=== PATIENT | male | born 1990 | race Caucasian/White ===

== ENCOUNTER 2020-06-08 09:45 | Inpatient (IN) | payer OTHER ==
[2020-06-08] MEDS ORDERED: LORazepam 2 MG/ML INJ IV STA (10:05)
[2020-06-08] MEDS ORDERED: SODIUM CHLORIDE 0.9% 1,000 ML IV STA (10:05)
[2020-06-08] MEDS ORDERED: THIAMINE 100 MG/ML 2 ML VIAL IM STA (10:06)
[2020-06-08 10:41] LABS: HCT 37.4 % (39.0-53.0); HGB 12.7 gm/dL (13.0-17.5); MCH 32.5 pg (25.0-35.0); MCHC 33.9 g/dL (31.0-37.0); MCV 95.8 fL (80.0-100.0); Mean Platelet Volume 9.3; Platelet Count 142 k/uL (150-450); RBC 3.91 m/uL (4.30-5.90); RDW 13.8 % (11.5-15.5); WBC 4.2 k/uL (3.8-10.6)
[2020-06-08 10:51] LABS: ALT 109 U/L (4-49); AST 354 U/L (17-59); African American GFR (CKD) >90 (>60 ml/min/1.73 sqM); Albumin 4.7 g/dL (3.5-5.0); Alcohol <10 mg/dL; Alkaline Phosphatase 137 U/L (38-126); Anion Gap 13 mmol/L; Blood Urea Nitrogen 7 mg/dL (9-20); Calcium 8.5 mg/dL (8.4-10.2); Carbon Dioxide 31 mmol/L (22-30); Chloride 92 mmol/L (98-107); Glucose 95 mg/dL (74-99); Lipase 558 U/L (23-300); Non-African American GFR(CKD) >90 (>60 ml/min/1.73 sqM); Potassium 3.3 mmol/L (3.5-5.1); Sodium 136 mmol/L (137-145); Total Bilirubin 2.6 mg/dL (0.2-1.3)
--- NOTE | 2020-06-08 10:59 | ED ---
General Adult HPI - General Chief complaint: Alcohol Stated complaint: Mental Health Time Seen by Provider: 06/08/20 09:50 Source: patient, EMS, RN notes reviewed, old records reviewed Mode of arrival: EMS Limitations: altered mental status - History of Present Illness Initial comments: 30-year-old male presents with alcohol withdrawal from [facility]. Patient has known history of alcohol abuse. His last drink was 2 days ago. When he checked in to [facility]. His alcohol level at that time was 200. He began having tremor and hallucinations as well as altered mental status today. He was sent to the emergency department for evaluation. Patient is uncertain exactly why he is in the emergency department. He admits to alcohol consumption but denies recent heavy daily alcohol consumption. No suicidal or homicidal ideation. - Related Data Home Medications Medication Instructions Recorded Confirmed Metoprolol Succinate (ER) [Toprol 100 mg PO DAILY 06/08/20 06/08/20 Xl] Pantoprazole Sodium [Protonix] 40 mg PO BID 06/08/20 06/08/20 Sucralfate [Carafate] 1 gm PO QID 06/08/20 06/08/20 amLODIPine [Norvasc] 5 mg PO DAILY 06/08/20 06/08/20 buPROPion HCL [Wellbutrin SR] 100 mg PO DAILY 06/08/20 06/08/20 Allergies Allergy/AdvReac Type Severity Reaction Status Date / Time No Known Allergies Allergy Verified 06/08/20 10:53 Review of Systems ROS Statement: Those systems with pertinent positive or pertinent negative responses have been documented in the HPI. ROS Other: All systems not noted in ROS Statement are negative. Past Medical History Past Medical History: Hypertension History of Any Multi-Drug Resistant Organisms: None Reported Past Psychological History: No Psychological Hx Reported Smoking Status: Current every day smoker Past Alcohol Use History: Heavy Past Drug Use History: None Reported General Exam Limitations: altered mental status General appearance: alert, anxious Head exam: Present: atraumatic, normocephalic Eye exam: Present: normal appearance, PERRL ENT exam: Present: mucous membranes dry Neck exam: Present: normal inspection. Absent: tenderness, meningismus Respiratory exam: Present: normal lung sounds bilaterally. Absent: respiratory distress Cardiovascular Exam: Present: regular rate, normal rhythm GI/Abdominal exam: Present: soft. Absent: distended, tenderness, guarding Extremities exam: Present: normal inspection, normal capillary refill. Absent: pedal edema Neurological exam: Present: alert. Absent: oriented X3, motor sensory deficit Psychiatric exam: Present: anxious Skin exam: Present: warm, dry, intact. Absent: cyanosis, diaphoretic Course Vital Signs 06/08/20 06/08/20 06/08/20 09:51 10:59 11:00 Temperature 98.6 F Pulse Rate 91 77 75 Respiratory 18 16 16 Rate Blood Pressure 143/104 156/112 O2 Sat by Pulse 100 99 100 Oximetry EKG Findings - EKG Comments: EKG Findings:: EKG: Sinus rhythm with first-degree AV block, T-wave inversion in V3 and V4, no ST segment elevation, ventricular rate of 90, HI interval 232, QRS duration 92, QTC 450. Medical Decision Making - Medical Decision Making 30-year-old male presenting for evaluation of suspected alcohol withdrawal. Patient is alert and oriented 1. He has a nonfocal neurologic exam. His vitals are stable. By review of the medical record it does appear this patient had his last drink approximately 2 days ago. He is given Ativan, IV fluids in the emergency department. Workup is initiated, normal CBC, CMP showing significant the left foot abnormalities including hypokalemia and hypomagnesemia as well as elevated bilirubin and transaminitis. He's electrolytes are re placed. He will be admitted to a monitored bed. Case discussed with Dr. Rivera who will admit. - Lab Data Result diagrams: 06/08/20 10:34 06/08/20 10:34 Lab Results 06/08/20 06/08/20 06/08/20 Range/Units 10:34 10:34 10:44 WBC 4.2 (3.8-10.6) k/uL RBC 3.91 L (4.30-5.90) m/uL Hgb 12.7 L (13.0-17.5) gm/dL Hct 37.4 L (39.0-53.0) % MCV 95.8 (80.0-100.0) fL MCH 32.5 (25.0-35.0) pg MCHC 33.9 (31.0-37.0) g/dL RDW 13.8 (11.5-15.5) % Plt Count 142 L (150-450) k/uL MPV 9.3 Neutrophils % (Manual) 59 % Lymphocytes % (Manual) 25 % Monocytes % (Manual) 11 % Eosinophils % (Manual) 5 % Neutrophils # (Manual) 2.48 (1.3-7.7) k/uL Lymphocytes # (Manual) 1.05 (1.0-4.8) k/uL Monocytes # (Manual) 0.46 (0-1.0) k/uL Eosinophils # (Manual) 0.21 (0-0.7) k/uL Nucleated RBCs 0 (0-0) /100 WBC Manual Slide Review Performed Poikilocytosis (manual Present Sodium 136 L (137-145) mmol/L Potassium 3.3 L (3.5-5.1) mmol/L Chloride 92 L (98-107) mmol/L Carbon Dioxide 31 H (22-30) mmol/L Anion Gap 13 mmol/L BUN 7 L (9-20) mg/dL Creatinine 1.11 (0.66-1.25) mg/dL Est GFR (CKD-EPI)AfAm >90 (>60 ml/min/1.73 sqM) Est GFR (CKD-EPI)NonAf >90 (>60 ml/min/1.73 sqM) Glucose 95 (74-99) mg/dL Calcium 8.5 (8.4-10.2) mg/dL Magnesium 0.6 L* (1.6-2.3) mg/dL Total Bilirubin 2.6 H (0.2-1.3) mg/dL AST 354 H (17-59) U/L ALT 109 H (4-49) U/L Alkaline Phosphatase 137 H (38-126) U/L Total Protein 8.0 (6.3-8.2) g/dL Albumin 4.7 (3.5-5.0) g/dL Lipase 558 H (23-300) U/L Urine Opiates Screen Not Detected (NotDetected) Ur Oxycodone Screen Not Detected (NotDetected) Urine Methadone Screen Not Detected (NotDetected) Ur Propoxyphene Screen Not Detected (NotDetected) Ur Barbiturates Screen Not Detected (NotDetected) U Tricyclic Antidepress Not Detected (NotDetected) Ur Phencyclidine Scrn Not Detected (NotDetected) Ur Amphetamines Screen Not Detected (NotDetected) U Methamphetamines Scrn Not Detected (NotDetected) U Benzodiazepines Scrn Detected H (NotDetected) Urine Cocaine Screen Not Detected (NotDetected) U Marijuana (THC) Screen Not Detected (NotDetected) Serum Alcohol <10 mg/dL Critical Care Time Critical Care Time: Yes Total Critical Care Time: 35 Disposition Clinical Impression: Alcohol withdrawal delirium, Hypomagnesemia Disposition: ADMITTED IP TO THIS [facility] Condition: Serious Is patient prescribed a controlled substance at d/c from ED?: No Referrals: Manpreet Mccartney MD [Primary Care Provider] - 1-2 days Decision to Admit Reason: Admit from EC Decision Date: 06/08/20 Decision Time: 11:33
[2020-06-08 11:03] LABS: Magnesium 0.6 mg/dL (1.6-2.3)
[2020-06-08 11:09] LABS: Amphetamine Screen,Urine Not Detected (NotDetected); Barbiturate Screen,Urine Not Detected (NotDetected); Benzodiazepines Screen,Urine Detected (NotDetected); Cocaine Screen,Urine Not Detected (NotDetected); Methadone Screen, Urine Not Detected (NotDetected); Opiate Screen,Urine Not Detected (NotDetected); Oxycodone Screen, Urine Not Detected (NotDetected); Phencyclidine Screen,Urine Not Detected (NotDetected); Tricyclic Antidepressant,Urine Not Detected (NotDetected); Urn Cannabinoid Scrn Not Detected (NotDetected)
[2020-06-08 11:19] LABS: Eosinophils # (M) 0.21 k/uL (0-0.7); Lymphocytes # (M) 1.05 k/uL (1.0-4.8); Monocytes # (M) 0.46 k/uL (0-1.0); Neutrophils # (M) 2.48 k/uL (1.3-7.7); Neutrophils % (M) 59 %; Nucleated Red Blood Cells 0 /100 WBC (0-0); Total Cells Counted 100
[2020-06-08 11:20] LABS: Poikilocytosis (M) Present
[2020-06-08] MEDS: MAGNESIUM SULFATE-D5W PMX 1 GM in DEXTROSE/WATER 1 100ML.BAG IVPB SCH ×4 (11:22→15:32)
--- NOTE | 2020-06-08 11:28 | CT ---
EXAMINATION TYPE: CT brain wo con DATE OF EXAM: 06/08/2020 COMPARISON: None HISTORY: Altered mental status CT DLP: 1087.4 mGycm. Automated Exposure Control for Dose Reduction was Utilized. TECHNIQUE: CT scan of the head is performed without contrast. FINDINGS: There is no acute intracranial hemorrhage, mass effect, or midline shift identified. The ventricles and sulci are within normal limits in size. The globes are intact and the visualized sin uses are clear. IMPRESSION: No acute intracranial hemorrhage, mass effect, or midline shift is seen.
[2020-06-08] MEDS ORDERED: NALOXONE 0.4 MG/ML 1 ML VIAL IV PRN (11:33)
[2020-06-08 11:38] LABS: INR 1.2 (<1.2); Prothrombin Time 12.6 sec (9.0-12.0)
[2020-06-08] MEDS: LORazepam 2 MG/ML INJ IV PRN ×7 (12:01→23:11)
[2020-06-08] MEDS: SODIUM CHLORIDE 0.9% 1,000 ML IV SCH ×2 (12:23→20:03)
[2020-06-08 13:30] LABS: Glucose,Whole Blood 103 mg/dL (75-99)
[2020-06-08] MEDS: POTASSIUM CHLORIDE 10 MEQ in WATER FOR INJECTION 1 100ML.BAG IVPB SCH ×4 (14:09→19:53)
[2020-06-08] MEDS: THIAMINE 100 MG TAB PO SCH (15:25)
[2020-06-08] MEDS: diazePAM 5 MG TAB PO SCH ×2 (15:31→20:02)
[2020-06-08] MEDS: DEXMEDETOMIDINE/0.9% NACL(PMX) 400 MCG in EMPTY BAG 1 BAG IV SCH ×2 (15:31→21:46)
[2020-06-08] MEDS: ENOXAPARIN 40 MG/0.4 ML SYRINGE SQ SCH (15:32)
[2020-06-08] MEDS ORDERED: DIAZEPAM 5 MG/ML 2 ML INJ IVP SCH (16:00)
[2020-06-08] MEDS: HALOPERIDOL LACTATE 5 MG/ML 1 ML VIAL IVP PRN (16:07)
[2020-06-08] MEDS: PANTOPRAZOLE 40 MG TABLET PO SCH (20:02)
--- NOTE | 2020-06-08 22:44 | P.HPIM ---
History of Present Illness H&P Date: 06/08/20 Chief Complaint: Alcohol disorder History of presenting complaint: This is a 30-year-old patient, follows with Dr. Manpreet Mccartney. Patient's a complete by his mother. Patient has a history of alcohol use disorder. He was checked in 2 [place] for detox 2 days ago. Was started on Ativan. Patient has been drinking 1/5 of alcohol every day. Last drink was 2 days ago. Patient started having tremors, visual hallucinations and therefore was sent down to the ER. Patient's only able to give a sporadic history. Most of the history is corroborated by the mother at the bedside. Patient somewhat shaky. He thinks that his puppy trainer coaches sitting in the room. Review of systems: GEN.: Tired EYES: None HEENT: None NECK: None RESPIRATORY: None CARDIOVASCULAR: None GASTROINTESTINAL: None GENITOURINARY: None MUSCULOSKELETAL: None LYMPHATICS: None HEMATOLOGICAL: None PSYCHIATRY: Hallucinating NEUROLOGICAL: Tremors Past medical history to include: Hypertension, alcohol use disorder. GI bleed. Social history: Patient drinks a fifth of 5 ball whiskey every day.. Smokes cigarettes. Is a graphic production artist. Currently at [place] for last 2 days. Family history: Reviewed, noncontributory to presentation Physical examination: VITAL SIGNS: 98.6, 83, 16, 1 46 x 1 8, 97% on room air GENERAL: BMI 25.6, sitting up, somewhat jittery slightly delirious multiple ta ttoos ears are pierced. EYES: Pupils equal. Conjunctiva normal. HEENT: External appearance of nose and ears normal, oral cavity grossly normal. NECK: JVD not raised; masses not palpable. HEART: First and second heart sounds are normal; no edema. LUNGS: Respiratory rate normal; clear to auscultation. ABDOMEN: Soft, nontender, liver spleen not palpable, no masses palpable. PSYCH: Patient is awake I would answer some questions.. Patient can see his assistant wrestling coach sitting in the corner of the room. NEUROLOGICAL: Cranial nerves grossly intact; no facial asymmetry, power and sensation grossly intact tremors. LYMPHATICS: No lymph nodes palpable in the axilla and neck Assessment and plan: -Acute delirium tremens from alcoholism. -Acute alcohol withdrawal syndrome. We will use scheduled Valium and beta esa for withdrawal symptoms. CIWA scale. -Alcohol use disorder -Chronic nicotine dependence patient cigarette smoker. Give nicotine patch -Essential hypertension. Continue home medications that include Toprol-XL and Norvasc -GERD continue with PPI Care was discussed with the mother at the bedside. Questions answered. Given the complexity and severity of patient's condition expect the patient to be in the hospital at least for 2 overnights Past Medical History Past Medical History: GI Bleed, Hypertension Additional Past Medical History / Comment(s): EGD December 2019 for ETOH withdraw and GI bleed. History of Any Multi-Drug Resistant Organisms: None Reported Additional Past Surgical History / Comment(s): EGD Past Anesthesia/Blood Transfusion Reactions: No Reported Reaction Past Psychological History: No Psychological Hx Reported Smoking Status: Current every day smoker Past Alcohol Use History: Heavy Additional Past Alcohol Use History / Comment(s): Patient states he drinks a fifth per day of fireball. Past Drug Use History: None Reported Medications and Allergies Home Medications Medication Instructions Recorded Confirmed Type Metoprolol Succinate (ER) [Toprol 100 mg PO DAILY 06/08/20 06/08/20 History Xl] Pantoprazole Sodium [Protonix] 40 mg PO BID 06/08/20 06/08/20 History Sucralfate [Carafate] 1 gm PO QID 06/08/20 06/08/20 History amLODIPine [Norvasc] 5 mg PO DAILY 06/08/20 06/08/20 History buPROPion HCL [Wellbutrin SR] 100 mg PO DAILY 06/08/20 06/08/20 History Allergies Allergy/AdvReac Type Severity Reaction Status Date / Time No Known Allergies Allergy Verified 06/08/20 10:53 Physical Exam Vitals: Vital Signs Temp Pulse Resp BP Pulse Ox 06/08/20 20:57 99 06/08/20 20:31 61 12 144/109 99 06/08/20 20:00 97.9 F 73 14 153/105 98 06/08/20 19:30 80 21 150/112 97 06/08/20 19:00 67 15 148/111 97 06/08/20 18:30 70 15 157/113 97 06/08/20 18:01 71 15 157/113 97 06/08/20 17:30 75 18 145/107 92 L 06/08/20 17:01 74 18 142/103 93 L 06/08/20 16:30 99.4 F 70 17 117/75 92 L 06/08/20 13:13 98.6 F 83 16 146/108 97 06/08/20 12:00 83 16 146/108 97 06/08/20 11:00 75 16 156/112 100 06/08/20 10:59 77 16 99 06/08/20 09:51 98.6 F 91 18 143/104 100 Intake and Output 06/08/20 06/08/20 06/08/20 06:59 14:59 22:59 Intake Total 200 975.231 Output Total 500 1025 Balance -300 -49.769 Intake: IV 200 900 Magnesium Sulfate-D5w Pmx 100 100 1 gm In Dextrose/Water 1 100ml.bag @ 100 mls/hr IVPB Q1H [facility] Rx#: [id number] Potassium Chloride 10 meq 100 300 In Water For Injection 1 100ml.bag @ 100 mls/hr IVPB Q1HR [facility] Rx#: [id number] Sodium Chloride 0.9% 1, 500 000 ml @ 100 mls/hr IV . Q10H [facility] Rx#:[id number] Intake, IV Titration 75.231 Amount Dexmedetomidine/0.9% NaCl 75.231 (Pmx) 400 mcg In Empty Bag 1 bag @ Titrate IV . Q0M [facility] Rx#:[id number] Output: Urine 500 1025 Other: Voiding Method Indwelling Catheter # Voids 1 1 Weight 90.5 kg Results CBC & Chem 7: 06/08/20 10:34 06/08/20 10:34 Labs: Abnormal Lab Results - Last 24 Hours (Table) 06/08/20 06/08/20 06/08/20 Range/Units 10:34 10:34 10:34 RBC 3.91 L (4.30-5.90) m/uL Hgb 12.7 L (13.0-17.5) gm/dL Hct 37.4 L (39.0-53.0) % Plt Count 142 L (150-450) k/uL PT 12.6 H (9.0-12.0) sec INR 1.2 H (<1.2) Sodium 136 L (137-145) mmol/L Potassium 3.3 L (3.5-5.1) mmol/L Chloride 92 L (98-107) mmol/L Carbon Dioxide 31 H (22-30) mmol/L BUN 7 L (9-20) mg/dL POC Glucose (mg/dL) (75-99) mg/dL Magnesium 0.6 L* (1.6-2.3) mg/dL Total Bilirubin 2.6 H (0.2-1.3) mg/dL AST 354 H (17-59) U/L ALT 109 H (4-49) U/L Alkaline Phosphatase 137 H (38-126) U/L Lipase 558 H (23-300) U/L U Benzodiazepines Scrn (NotDetected) 06/08/20 06/08/20 Range/Units 10:44 13:29 RBC (4.30-5.90) m/uL Hgb (13.0-17.5) gm/dL Hct (39.0-53.0) % Plt Count (150-450) k/uL PT (9.0-12.0) sec INR (<1.2) Sodium (137-145) mmol/L Potassium (3.5-5.1) mmol/L Chloride (98-107) mmol/L Carbon Dioxide (22-30) mmol/L BUN (9-20) mg/dL POC Glucose (mg/dL) 103 H (75-99) mg/dL Magnesium (1.6-2.3) mg/dL Total Bilirubin (0.2-1.3) mg/dL AST (17-59) U/L ALT (4-49) U/L Alkaline Phosphatase (38-126) U/L Lipase (23-300) U/L U Benzodiazepines Scrn Detected H (NotDetected) Thrombosis Risk Factor Assmnt - Choose All That Apply Each Factor Represents 1 point: Medical pt on bed rest, Obesity (BMI >25) Other Risk Factors: No Other congenital or acquired thrombophilia - If yes, enter type in comment: No Thrombosis Risk Factor Assessment Total Risk Factor Score: 2 Thrombosis Risk Factor Assessment Level: Low Risk
[2020-06-09] MEDS: LORazepam 2 MG/ML INJ IV PRN ×9 (01:21→23:44)
[2020-06-09] MEDS: DEXMEDETOMIDINE/0.9% NACL(PMX) 400 MCG in EMPTY BAG 1 BAG IV SCH ×4 (04:41→23:57)
[2020-06-09 04:58] LABS: HCT 38.6 % (39.0-53.0); HGB 13.7 gm/dL (13.0-17.5); MCH 34.1 pg (25.0-35.0); MCHC 35.6 g/dL (31.0-37.0); Mean Platelet Volume 7.8; Platelet Count 136 k/uL (150-450); RBC 4.02 m/uL (4.30-5.90); RDW 13.1 % (11.5-15.5); WBC 4.4 k/uL (3.8-10.6)
[2020-06-09 05:15] LABS: ALT 106 U/L (4-49); AST 230 U/L (17-59); African American GFR (CKD) >90 (>60 ml/min/1.73 sqM); Albumin 4.3 g/dL (3.5-5.0); Alkaline Phosphatase 138 U/L (38-126); Anion Gap 13 mmol/L; Blood Urea Nitrogen 3 mg/dL (9-20); Calcium 7.9 mg/dL (8.4-10.2); Carbon Dioxide 26 mmol/L (22-30); Chloride 97 mmol/L (98-107); Glucose 90 mg/dL (74-99); Magnesium 1.4 mg/dL (1.6-2.3); Non-African American GFR(CKD) >90 (>60 ml/min/1.73 sqM); Potassium 3.2 mmol/L (3.5-5.1); Sodium 136 mmol/L (137-145); Total Bilirubin 2.5 mg/dL (0.2-1.3); Total Protein 7.5 g/dL (6.3-8.2)
[2020-06-09] MEDS ORDERED: Magnesium Replacement Protocol 1 EACH MISC MISCELLANE PRN (05:27)
[2020-06-09] MEDS ORDERED: Potassium Replacement Protocol 1 EACH MISC MISCELLANE PRN (05:27)
[2020-06-09] MEDS: HALOPERIDOL LACTATE 5 MG/ML 1 ML VIAL IVP PRN ×3 (05:32→22:16)
[2020-06-09] MEDS: POTASSIUM CHLORIDE ER 20 MEQ TAB.ER PO SCH ×2 (05:34→06:55)
[2020-06-09] MEDS: MAGNESIUM SULFATE-D5W PMX 1 GM in DEXTROSE/WATER 1 100ML.BAG IVPB SCH ×3 (05:34→08:52)
[2020-06-09 05:37] LABS: Eosinophils # (M) 0.13 k/uL (0-0.7); Lymphocytes # (M) 1.01 k/uL (1.0-4.8); Monocytes # (M) 0.35 k/uL (0-1.0); Neutrophils % (M) 66 %; Nucleated Red Blood Cells 0 /100 WBC (0-0); Total Cells Counted 100
[2020-06-09] MEDS: THIAMINE 100 MG TAB PO SCH ×2 (06:55→16:12)
[2020-06-09] MEDS: SODIUM CHLORIDE 0.9% 1,000 ML IV SCH ×2 (09:22→18:38)
[2020-06-09] MEDS: buPROPion SR 100 MG TABLET.ER PO SCH (09:52)
[2020-06-09] MEDS: METOPROLOL SUCCINATE (ER) 100 MG TAB.ER.24H PO SCH (09:53)
[2020-06-09] MEDS: diazePAM 5 MG TAB PO SCH (09:53)
[2020-06-09] MEDS: amLODIPine 5 MG TAB PO SCH (09:54)
[2020-06-09] MEDS: PANTOPRAZOLE 40 MG TABLET PO SCH ×2 (09:54→19:59)
[2020-06-09] MEDS: ENOXAPARIN 40 MG/0.4 ML SYRINGE SQ SCH (09:55)
--- NOTE | 2020-06-09 13:26 | P.CNPUL ---
History of Present Illness Consult date: 06/09/20 Reason for consult: other (Acute alcohol withdrawal) Chief complaint: Alcohol withdrawal symptoms History of present illness: This is a 30-year-old white male with history of alcoholism, patient is primarily a patient of Dr. Ramos. Patient checked into [facility] for detox about 2 days ago, and he was started on Ativan. Last drink was 2 days prior to admission. Patient started having significant symptoms of alcohol withdrawal including anxiety, tremors, visual hallucinations, hence he was sent to the ER for further evaluation. Considering that the patient was requiring significant amount of sedation, I was notified about this patient, and I recommended admitting the patient to the ICU. Patient is now on Precedex at 0.5 mcg/kg/m, IV fluid at 100 mL/h, he is also on Ativan as per the [facility] protocol, and he is also on Haldol when necessary 2 mg IV push every 4 hours as needed. Patient seems to be requiring Ativan almost every 2 hours. And his Precedex dose was increased earlier this morning because of increased agitation. When I saw the patient, he was sleeping, cough, and not in any distress. Review of Systems Constitutional: Negative HEENT: Negative RESPIRATORY: None CARDIOVASCULAR: None GASTROINTESTINAL: None GENITOURINARY: None MUSCULOSKELETAL: None LYMPHATICS: None HEMATOLOGICAL: None PSYCHIATRY: Hallucinating NEUROLOGICAL: Tremors Past Medical History Past Medical History: GI Bleed, Hypertension Additional Past Medical History / Comment(s): EGD December 2019 for ETOH withdraw and GI bleed. History of Any Multi-Drug Resistant Organisms: None Reported Additional Past Surgical History / Comment(s): EGD Past Anesthesia/Blood Transfusion Reactions: No Reported Reaction Past Psychological History: No Psychological Hx Reported Smoking Status: Current every day smoker Past Alcohol Use History: Heavy Additional Past Alcohol Use History / Comment(s): Patient states he drinks a fifth per day of fireball. Past Drug Use History: None Reported Medications and Allergies Home Medications Medication Instructions Recorded Confirmed Type Metoprolol Succinate (ER) [Toprol 100 mg PO DAILY 06/08/20 06/08/20 History Xl] Pantoprazole Sodium [Protonix] 40 mg PO BID 06/08/20 06/08/20 History Sucralfate [Carafate] 1 gm PO QID 06/08/20 06/08/20 History amLODIPine [Norvasc] 5 mg PO DAILY 06/08/20 06/08/20 History buPROPion HCL [Wellbutrin SR] 100 mg PO DAILY 06/08/20 06/08/20 History Allergies Allergy/AdvReac Type Severity Reaction Status Date / Time No Known Allergies Allergy Verified 06/08/20 10:53 Physical Exam Vitals: Vital Signs Temp Pulse Pulse Resp BP BP Pulse Ox 06/09/20 12:00 98.1 F 68 23 102/81 98 06/09/20 11:00 64 16 124/75 98 06/09/20 10:00 75 17 111/77 98 06/09/20 09:00 78 12 132/91 96 06/09/20 08:00 97.2 F L 73 18 132/87 97 06/09/20 07:00 80 12 133/102 98 06/09/20 06:00 73 17 152/111 97 06/09/20 05:00 68 19 148/113 97 06/09/20 04:00 97.9 F 68 18 151/111 98 06/09/20 01:00 75 13 159/111 98 06/09/20 00:00 98.8 F 68 14 164/117 99 06/08/20 23:32 69 17 99 06/08/20 23:00 67 17 154/115 99 06/08/20 22:45 69 17 99 06/08/20 20:57 99 06/08/20 20:31 61 12 144/109 99 06/08/20 20:00 97.9 F 73 14 153/105 98 06/08/20 19:30 80 21 150/112 97 06/08/20 19:00 67 67 15 148/111 150/112 97 06/08/20 18:30 70 15 157/113 97 06/08/20 18:01 71 15 157/113 97 06/08/20 18:00 70 15 157/113 97 06/08/20 17:30 75 18 145/107 92 L 06/08/20 17:01 74 18 142/103 93 L 06/08/20 17:00 74 19 145/107 93 L 06/08/20 16:30 99.4 F 70 17 117/75 92 L 06/08/20 16:00 99.4 F 110 H 17 142/103 96 06/08/20 15:00 98 20 153/106 96 06/08/20 14:00 110 H 16 138/93 95 06/08/20 13:30 99.4 F 99 22 163/117 96 06/08/20 13:13 98.6 F 83 16 146/108 97 Intake and Output 06/08/20 06/09/20 06/09/20 21:59 06:59 14:59 Intake Total 831.610 Output Total 320 Balance 511.610 Intake: IV 550 Magnesium Sulfate-D5w Pmx 100 1 gm In Dextrose/Water 1 100ml.bag @ 100 mls/hr IVPB Q1H [facility] Rx#: [id number] Potassium Chloride 10 meq In Water For Injection 1 100ml.bag @ 100 mls/hr IVPB Q1HR [facility] Rx#: [id number] Sodium Chloride 0.9% 1, 450 000 ml @ 100 mls/hr IV . Q10H [facility] Rx#:[id number] Intake, IV Titration 81.610 Amount Dexmedetomidine/0.9% NaCl 81.610 (Pmx) 400 mcg In Empty Bag 1 bag @ Titrate IV . Q0M [facility] Rx#:[id number] Oral 200 Output: Urine 320 Other: Voiding Method Indwelling Catheter # Voids # Bowel Movements 1 Weight Physical Exam: Revealed a 30-year-old white male sedated, on Precedex, in no distress. Head: Atraumatic, normocephalic. HEENT:[Neck is supple.] [No neck masses.] [No thyromegaly.] [No JVD.] Chest: [Clear throughout, no crackles, no rhonchi, no wheezes.] Cardiac Exam: [Normal S1 and S2, no S3 gallop, no murmur.] Abdomen: [Soft, nontender, no megaly, no rebound, no guarding, normal bowel sounds.] Extremities: [No clubbing, no edema, no cyanosis.] Neurological Exam: Sedated, calm, unable to perform full neurological examination since the patient gets agitated easily. Psychiatric: Calm, blunt affect, could not fully assess mental status. Skin: Multiple tattoos all over. Results - Laboratory Findings CBC and BMP: 06/09/20 04:22 06/09/20 04:22 PT/INR, D-dimer PT 12.6 sec (9.0-12.0) H 06/08/20 10:34 INR 1.2 (<1.2) H 06/08/20 10:34 Abnormal lab findings: Abnormal Labs 06/08/20 06/08/20 06/08/20 10:34 10:34 10:34 RBC 3.91 L Hgb 12.7 L Hct 37.4 L Plt Count 142 L PT 12.6 H INR 1.2 H Sodium 136 L Potassium 3.3 L Chloride 92 L Carbon Dioxide 31 H BUN 7 L POC Glucose (mg/dL) Calcium Magnesium 0.6 L* Total Bilirubin 2.6 H AST 354 H ALT 109 H Alkaline Phosphatase 137 H Lipase 558 H U Benzodiazepines Scrn 06/08/20 06/08/20 06/09/20 10:44 13:29 04:22 RBC 4.02 L Hgb Hct 38.6 L Plt Count 136 L PT INR Sodium Potassium Chloride Carbon Dioxide BUN POC Glucose (mg/dL) 103 H Calcium Magnesium Total Bilirubin AST ALT Alkaline Phosphatase Lipase U Benzodiazepines Scrn Detected H 06/09/20 04:22 RBC Hgb Hct Plt Count PT INR Sodium 136 L Potassium 3.2 L Chloride 97 L Carbon Dioxide BUN 3 L POC Glucose (mg/dL) Calcium 7.9 L Magnesium 1.4 L Total Bilirubin 2.5 H AST 230 H ALT 106 H Alkaline Phosphatase 138 H Lipase U Benzodiazepines Scrn - Diagnostic Findings Additional studies: CT brain: Negative Assessment and Plan Assessment: Impression: Acute delirium tremens and alcohol withdrawal symptoms. History of alcoholism. Tobacco dependence syndrome. Benign essential hypertension. History of GERD. Recommendation: Continue to monitor in the ICU. Continue CIWA protocol. Continue Ativan and Precedex and Haldol. Continue GI and DVT prophylaxis. Supportive care measures. We will continue to follow while in ICU. Time with Patient: Greater than 30
[2020-06-09] MEDS ORDERED: diazePAM 5 MG TAB PO SCH (21:00)
--- NOTE | 2020-06-09 21:20 | P.PN ---
Progress Note - Text Progress Note Date: 06/09/20 Chief Complaint: Alcohol disorder History of presenting complaint: This is a 30-year-old patient, follows with Dr. Manpreet Mccartney. Patient's a complete by his mother. Patient has a history of alcohol use disorder. He was checked in [address] [place] [address] for detox 2 days ago. Was started on Ativan. Patient has been drinking 1/5 of alcohol every day. Last drink was 2 days ago. Patient started having tremors, visual hallucinations and therefore was sent down to the ER. Patient's only able to give a sporadic history. Most of the history is corroborated by the mother at the bedside. Patient somewhat shaky. He thinks that his resident athletic trainer coaches sitting in the room. Admitted with acute DTs, acute alcohol withdrawal syndrome,. Put on a CIWA scale. Valium beta esa. Today-patient ICU. More restful than yesterday. Sleepy. Oral intake little Mother at the bedside. Review of systems: Attempted for constitutional, cardiovascular, GI, pulmonary. relevant finding as above Active Medications Amlodipine Besylate (Amlodipine 5 Mg Tab) 5 mg PO DAILY [facility] Last Admin: 06/09/20 09:54 Dose: 5 mg Documented by: Bupropion HCl (Bupropion Sr 100 Mg Tablet.Er) 100 mg PO DAILY [facility] Last Admin: 06/09/20 09:52 Dose: 100 mg Documented by: Diazepam (Diazepam 5 Mg Tab) 5 mg PO Q12H [facility] Last Admin: 06/09/20 19:59 Dose: 5 mg Documented by: Enoxaparin Sodium (Enoxaparin 40 Mg/0.4 Ml Syringe) 40 mg SQ DAILY [facility] Last Admin: 06/09/20 09:55 Dose: 40 mg Documented by: Haloperidol Lactate (Haloperidol Lactate 5 Mg/Ml 1 Ml Vial) 2 mg IVP Q4HR PRN PRN Reason: Agitation or Acute Psychosis Last Admin: 06/09/20 17:23 Dose: 2 mg Documented by: Sodium Chloride (Saline 0.9%) 1,000 mls @ 100 mls/hr IV .Q10H [facility] Last Admin: 06/09/20 18:38 Dose: 100 mls/hr Documented by: Dexmedetomidine HCl 400 mcg/ (IV Solution) 100 mls @ 0 mls/hr IV .Q0M [facility]; Protocol Stop: 06/10/20 16:13 Last Titration: 06/09/20 18:00 Dose: 0.6 mcg/kg/hr, 13.744 mls/hr Documented by: Lorazepam (Lorazepam 2 Mg/Ml Inj) 1 mg IV Q2HR PRN PRN Reason: CIWA 8 or 9 Last Admin: 06/08/20 23:11 Dose: 1 mg Documented by: Lorazepam (Lorazepam 2 Mg/Ml Inj) 1 mg IV Q1HR PRN PRN Reason: CIWA 10 to 15 Last Admin: 06/09/20 19:13 Dose: 1 mg Documented by: Metoprolol Succinate (Metoprolol Succinate (Er) 100 Mg Tab.Er.24h) 100 mg PO DAILY [facility] Last Admin: 06/09/20 09:53 Dose: 100 mg Documented by: Miscellaneous Information (Potassium Replacement Protocol 1 Each Misc) 1 each MISCELLANE DAILY PRN; Protocol PRN Reason: Per Protocol Miscellaneous Information (Magnesium Replacement Protocol 1 Each Misc) 1 each MISCELLANE DAILY PRN; Protocol PRN Reason: Per Protocol Naloxone HCl (Naloxone 0.4 Mg/Ml 1 Ml Vial) 0.2 mg IV Q2M PRN PRN Reason: Opioid Reversal Pantoprazole Sodium (Pantoprazole 40 Mg Tablet) 40 mg PO BID [facility] Last Admin: 06/09/20 19:59 Dose: 40 mg Documented by: Thiamine HCl (Thiamine 100 Mg Tab) 100 mg PO BID-W/MEALS [facility] Last Admin: 06/09/20 16:12 Dose: 100 mg Documented by: Past medical history to include: Hypertension, alcohol use disorder. GI bleed. Social history: Patient drinks a fifth of 5 ball whiskey every day.. Smokes cigarettes. 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 Currently at [place] for last 2 days. Family history: Reviewed, noncontributory to presentation Physical examination: VITAL SIGNS: 98.1, 68, 14, 128/92, 94% GENERAL: Laying in bed, but sleepy EYES: Pupils equal. Conjunctiva normal. HEENT: External appearance of nose and ears normal, oral cavity grossly normal. NECK: JVD not raised; masses not palpable. HEART: First and second heart sounds are normal; no edema. LUNGS: Respiratory rate normal; clear to auscultation. ABDOMEN: Soft, nontender, liver spleen not palpable, no masses palpable. PSYCH: Sleepy but arousable. INVESTIGATIONS, reviewed in the clinical context: WBC 4.4 hemoglobin 13.7 platelets 136 potassium 3.2 creatinine 0.81 Magnesium 1.4 AST 2:30 ALT 106 Assessment and plan: -Acute delirium tremens from alcoholism. -Acute alcohol withdrawal syndrome. scheduled Valium and beta esa CIWA scale. Decrease Valium to 5 mg every 12. Reduced dose in the morning. -Alcohol use disorder -Chronic nicotine dependence patient cigarette smoker. Give nicotine patch -Essential hypertension. Continue home medications that include Toprol-XL and Norvasc -GERD continue with PPI -Hypomagnesemia from alcoholism -Alcoholic hepatitis -Hypokalemia. Replace potassium Care was discussed with the mother at the bedside. Questions answered. Dose of Valium cutback.
[2020-06-10] MEDS: LORazepam 2 MG/ML INJ IV PRN ×3 (01:06→14:09)
[2020-06-10 04:06] LABS: ALT 82 U/L (4-49); AST 144 U/L (17-59); African American GFR (CKD) >90 (>60 ml/min/1.73 sqM); Alkaline Phosphatase 134 U/L (38-126); Anion Gap 8 mmol/L; Blood Urea Nitrogen <2 mg/dL (9-20); Carbon Dioxide 29 mmol/L (22-30); Chloride 97 mmol/L (98-107); Glucose 96 mg/dL (74-99); Magnesium 1.6 mg/dL (1.6-2.3); Non-African American GFR(CKD) >90 (>60 ml/min/1.73 sqM); Potassium 3.6 mmol/L (3.5-5.1); Sodium 134 mmol/L (137-145); Total Bilirubin 1.9 mg/dL (0.2-1.3)
[2020-06-10 04:22] LABS: HCT 39.4 % (39.0-53.0); HGB 13.2 gm/dL (13.0-17.5); MCH 32.4 pg (25.0-35.0); MCHC 33.6 g/dL (31.0-37.0); MCV 96.6 fL (80.0-100.0); Mean Platelet Volume 8.3; Platelet Count 155 k/uL (150-450); RBC 4.08 m/uL (4.30-5.90); RDW 14.2 % (11.5-15.5); WBC 5.2 k/uL (3.8-10.6)
[2020-06-10] MEDS: SODIUM CHLORIDE 0.9% 1,000 ML IV SCH (04:44)
[2020-06-10] MEDS: MAGNESIUM SULFATE-D5W PMX 1 GM in DEXTROSE/WATER 1 100ML.BAG IVPB SCH ×2 (04:44→06:03)
[2020-06-10] MEDS ORDERED: POTASSIUM CHLORIDE ER 20 MEQ TAB.ER PO SCH (05:00)
[2020-06-10 05:29] LABS: Eosinophils # (M) 0.26 k/uL (0-0.7); Lymphocytes # (M) 0.83 k/uL (1.0-4.8); Monocytes # (M) 0.52 k/uL (0-1.0); Neutrophils # (M) 3.59 k/uL (1.3-7.7); Neutrophils % (M) 69 %; Nucleated Red Blood Cells 0 /100 WBC (0-0); Total Cells Counted 100
[2020-06-10] MEDS: DEXMEDETOMIDINE/0.9% NACL(PMX) 400 MCG in EMPTY BAG 1 BAG IV SCH (06:24)
[2020-06-10] MEDS: THIAMINE 100 MG TAB PO SCH ×2 (06:24→16:48)
[2020-06-10] MEDS ORDERED: diazePAM 2 MG TAB PO SCH (07:00)
[2020-06-10] MEDS: amLODIPine 5 MG TAB PO SCH (09:00)
[2020-06-10] MEDS: METOPROLOL SUCCINATE (ER) 100 MG TAB.ER.24H PO SCH ×2 (09:00→15:10)
--- NOTE | 2020-06-10 09:21 | P.PN ---
Subjective Progress Note Date: 06/10/20 Principal diagnosis: Acute EtOH withdrawal This is a 30-year-old white male with history of alcoholism, patient is primarily a patient of Dr. Ramos. Patient checked into [facility] for detox about 2 days ago, and he was started on Ativan. Last drink was 2 days prior to admission. Patient started having significant symptoms of alcohol withdrawal including anxiety, tremors, visual hallucinations, hence he was sent to the ER for further evaluation. Considering that the patient was requiring significant amount of sedation, I was notified about this patient, and I recommended admitting the patient to the ICU. Patient is now on Precedex at 0.5 mcg/kg/m, IV fluid at 100 mL/h, he is also on Ativan as per the CIWA protocol, and he is also on Haldol when necessary 2 mg IV push every 4 hours as needed. Patient seems to be requiring Ativan almost every 2 hours. And his Precedex dose was increased earlier this morning because of increased agitation. When I saw the patient, he was sleeping, cough, and not in any distress. On 06/10/2020 patient seen in follow-up in intensive care unit, he is drowsy, but cough, he is currently on 2 L of oxygen, he is breathing comfortably, his pulse ox is 98%, subsequently oxygen was removed, and room air pulse ox remains at 95%, his been afebrile, hemodynamically patient has been stable, he remains on Precedex at 0.6 mics per kilo per hour which is being weaned down, his CIWA score was 3 this morning. His last dose of Ativan was this morning patient received 1 mg, patient has had no seizure activity, he is in sinus mechanism with a controlled rate, no tachycardia, his labs have been reviewed, his sodium is 134, potassium is 3.6, chloride is 97, his BUN is less than 2, calcium is 8.0, his bilirubin has improved and is down to 1.9, his LFTs are improving. No leukocytosis, he is receiving 0.9 normal seen at a rate of 100 ML per hour, he is receiving thiamine replacement. Lovenox 40 mg for DVT prophylaxis and Proton ix 40 mg twice daily for GI prophylaxis. His had no acute events overnight. His brain CT on admission showed no acute intracranial abnormality. Objective - Vital Signs Vital signs: Vital Signs Temp 98.6 F 06/10/20 08:00 Pulse 78 06/10/20 08:00 Resp 16 06/10/20 08:00 BP 156/117 06/10/20 08:00 Pulse Ox 95 06/10/20 08:00 Intake & Output 06/09/20 06/10/20 06/10/20 18:59 06:59 18:59 Intake Total 4529.582 4999.777 230.046 Output Total 1839 1994 280 Balance -292.928 -233.223 -49.954 Weight 88.5 kg Intake: IV 1250 1100 200 Magnesium Sulfate-D5w Pmx 100 1 gm In Dextrose/Water 1 100ml.bag @ 100 mls/hr IVPB Q1H [facility] Rx#: [id number] Sodium Chloride 0.9% 1, 1150 1100 200 000 ml @ 100 mls/hr IV . Q10H [facility] Rx#:[id number] Intake, IV Titration 97.072 181.777 30.046 Amount Dexmedetomidine/0.9% NaCl 81.610 (Pmx) 400 mcg In Empty Bag 1 bag @ Titrate IV . Q0M [facility] Rx#:[id number] Dexmedetomidine/0.9% NaCl 15.462 181.777 30.046 (Pmx) 400 mcg In Empty Bag 1 bag @ Titrate IV . Q0M [facility] Rx#:[id number] Oral 200 480 Output: Urine 1839 Other: Voiding Method Indwelling Catheter Indwelling Catheter Indwelling Catheter # Bowel Movements 1 - Exam GENERAL EXAM: Drowsy, but none agitated 30-year-old white male on 2 L of oxygen the pulse ox of 98% comfortable in no apparent distress. HEAD: Normocephalic/atraumatic. EYES: Normal reaction of pupils, equal size. Conjunctiva pink, sclera white. NOSE: Clear with pink turbinates. THROAT: No erythema or exudates. NECK: No masses, no JVD, no thyroid enlargement, no adenopathy. CHEST: No chest wall deformity. Symmetrical expansion. LUNGS: Equal air entry with no crackles, wheeze, rhonchi or dullness. CVS: Regular rate and rhythm, normal S1 and S2, no gallops, no murmurs, no rubs ABDOMEN: Soft, nontender. No hepatosplenomegaly, normal bowel sounds, no guarding or rigidity. EXTREMITIES: No clubbing, no edema, no cyanosis, 2+ pulses and upper and lower extremities. MUSCULOSKELETAL: Muscle strength and tone normal. SPINE: No scoliosis or deformity SKIN: No rashes CENTRAL NERVOUS SYSTEM: Drowsy No focal deficits, tone is normal in all 4 e xtremities. - Labs CBC & Chem 7: 06/10/20 02:48 06/10/20 02:48 Labs: Abnormal Lab Results - Last 24 Hours (Table) 06/10/20 06/10/20 Range/Units 02:48 02:48 RBC 4.08 L (4.30-5.90) m/uL Lymphocytes # (Manual) 0.83 L (1.0-4.8) k/uL Sodium 134 L (137-145) mmol/L Chloride 97 L (98-107) mmol/L BUN <2 L (9-20) mg/dL Calcium 8.0 L (8.4-10.2) mg/dL Total Bilirubin 1.9 H (0.2-1.3) mg/dL AST 144 H (17-59) U/L ALT 82 H (4-49) U/L Alkaline Phosphatase 134 H (38-126) U/L Assessment and Plan Plan: Assessment: #1. Acute delirium tremens and alcohol withdrawal symptoms #2. History of chronic alcoholism #3. Tobacco dependence syndrome #4. Benign essential hypertension #5. History of GERD Plan: Patient has been stable overnight, last CIWA scale score was only 3, wean Precedex. Continue with when necessary Ativan. Continue with when necessary Haldol. Continue GI and DVT prophylaxis, maintain aspiration precautions, remains stable may be considered for transfer out of the ICU to general medical floor today I performed a history & physical examination of the patient and discussed their management with my nurse practitioner, Jacqui Driscoll. I reviewed the nurse practitioner's note and agree with the documented findings and plan of care. Lung sounds are positive for diminished breath sounds. The findings and the impression was discussed with the patient. I attest to the documentation by the nurse practitioner. Time with Patient: Less than 30
[2020-06-10] MEDS: ENOXAPARIN 40 MG/0.4 ML SYRINGE SQ SCH (09:28)
[2020-06-10] MEDS: buPROPion SR 100 MG TABLET.ER PO SCH (09:32)
[2020-06-10] MEDS: PANTOPRAZOLE 40 MG TABLET PO SCH ×2 (09:32→21:40)
--- NOTE | 2020-06-10 20:34 | P.PN ---
Progress Note - Text Progress Note Date: 06/10/20 Chief Complaint: Alcohol disorder History of presenting complaint: This is a 30-year-old patient, follows with Dr. Manpreet Mccartney. Patient's a complete by his mother. Patient has a history of alcohol use disorder. He was checked in [address] [place] [address] for detox 2 days ago. Was started on Ativan. Patient has been drinking 1/5 of alcohol every day. Last drink was 2 days ago. Patient started having tremors, visual hallucinations and therefore was sent down to the ER. Patient's only able to give a sporadic history. Most of the history is corroborated by the mother at the bedside. Patient somewhat shaky. He thinks that his assistive technology trainer coaches sitting in the room. Admitted with acute DTs, acute alcohol withdrawal syndrome,. Put on a CIWA scale. Placed on Precedex drip. In the ICU. Today-ICU. More awake today. Answering questions better. A bit tired. Started to eat. Mother at the bedside. Patient is off the Precedex drip. Review of systems: Done for constitutional, cardiovascular, GI, pulmonary. relevant finding as above Active Medications Amlodipine Besylate (Amlodipine 5 Mg Tab) 5 mg PO DAILY [facility] Last Admin: 06/10/20 09:00 Dose: Not Given Documented by: Bupropion HCl (Bupropion Sr 100 Mg Tablet.Er) 100 mg PO DAILY [facility] Last Admin: 06/10/20 09:32 Dose: 100 mg Documented by: Enoxaparin Sodium (Enoxaparin 40 Mg/0.4 Ml Syringe) 40 mg SQ DAILY [facility] Last Admin: 06/10/20 09:28 Dose: 40 mg Documented by: Haloperidol Lactate (Haloperidol Lactate 5 Mg/Ml 1 Ml Vial) 2 mg IVP Q4HR PRN PRN Reason: Agitation or Acute Psychosis Last Admin: 06/09/20 22:16 Dose: 2 mg Documented by: Lorazepam (Lorazepam 2 Mg/Ml Inj) 1 mg IV Q2HR PRN PRN Reason: CIWA 8 or 9 Last Admin: 06/10/20 14:09 Dose: 0.5 mg Documented by: Lorazepam (Lorazepam 2 Mg/Ml Inj) 1 mg IV Q1HR PRN PRN Reason: CIWA 10 to 15 Last Admin: 06/10/20 06:24 Dose: 1 mg Documented by: Metoprolol Succinate (Metoprolol Succinate (Er) 100 Mg Tab.Er.24h) 100 mg PO DAILY [facility] Last Admin: 06/10/20 15:10 Dose: 100 mg Documented by: Miscellaneous Information (Potassium Replacement Protocol 1 Each Misc) 1 each MISCELLANE DAILY PRN; Protocol PRN Reason: Per Protocol Miscellaneous Information (Magnesium Replacement Protocol 1 Each Misc) 1 each MISCELLANE DAILY PRN; Protocol PRN Reason: Per Protocol Naloxone HCl (Naloxone 0.4 Mg/Ml 1 Ml Vial) 0.2 mg IV Q2M PRN PRN Reason: Opioid Reversal Pantoprazole Sodium (Pantoprazole 40 Mg Tablet) 40 mg PO BID [facility] Last Admin: 06/10/20 09:32 Dose: 40 mg Documented by: Thiamine HCl (Thiamine 100 Mg Tab) 100 mg PO BID-W/MEALS [facility] Last Admin: 06/10/20 16:48 Dose: 100 mg Documented by: Past medical history to include: Hypertension, alcohol use disorder. GI bleed. Social history: Patient drinks a fifth of 5 ball whiskey every day.. Smokes cigarettes. 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 Family history: Reviewed, noncontributory to presentation Physical examination: VITAL SIGNS: 98.3, 83, 20, 136.93, 97% room air GENERAL: Sitting up in bed, more awake today but tired EYES: Pupils equal. Conjunctiva normal. HEENT: External appearance of nose and ears normal, oral cavity grossly normal. NECK: JVD not raised; masses not palpable. HEART: First and second heart sounds are normal; no edema. LUNGS: Respiratory rate normal; clear to auscultation. ABDOMEN: Soft, nontender, liver spleen not palpable, no masses palpable. PSYCH: Answering questions better knows that he is at [facility]. Remembers the month INVESTIGATIONS, reviewed in the clinical context: June 10: WBC 5.2 hemoglobin 13.2 potassium 3.6 creatinine 0.73 AST 144 ALT 82 total bilirubin 1.9 WBC 4.4 hemoglobin 13.7 platelets 136 potassium 3.2 creatinine 0.81 Magnesium 1.4 AST 2:30 ALT 106 Assessment and plan: -Acute delirium tremens from alcoholism.-Improving -Acute alcohol withdrawal syndrome. Patient was on Precedex-discontinued CIWA scale. -Alcohol use disorder -Chronic nicotine dependence patient cigarette smoker. Give nicotine patch -Essential hypertension. Continue home medications that include Toprol-XL and Norvasc -GERD continue with PPI -Hypomagnesemia from alcoholism, to place -Alcoholic hepatitis -Hypokalemia. Replace potassium -Hyperbilirubinemia, improving Care was discussed with the mother at the bedside. Patient be moved out of the ICU. Hopefully discharge in next 24-48 hours.
[2020-06-11 04:58] VITALS: BP 134/83; RESP 16; TEMP 98.8
[2020-06-11] MEDS: THIAMINE 100 MG TAB PO SCH (08:30)
[2020-06-11] MEDS: PANTOPRAZOLE 40 MG TABLET PO SCH ×2 (08:30→08:42)
[2020-06-11] MEDS: LORazepam 2 MG/ML INJ IV PRN (08:30)
[2020-06-11] MEDS: METOPROLOL SUCCINATE (ER) 100 MG TAB.ER.24H PO SCH (08:30)
[2020-06-11] MEDS: amLODIPine 5 MG TAB PO SCH (08:30)
[2020-06-11] MEDS: ENOXAPARIN 40 MG/0.4 ML SYRINGE SQ SCH (08:30)
[2020-06-11] MEDS: buPROPion SR 100 MG TABLET.ER PO SCH (08:31)
[2020-06-11 10:28] VITALS: PULSE 70
--- NOTE | 2020-06-11 20:04 | P.DS ---
Providers Date of admission: 06/08/20 11:34 Expected date of discharge: 06/11/20 Attending physician: Zack Rivera Primary care physician: Manpreet Mccartney [facility] Course: Chief Complaint: Alcohol disorder History of presenting complaint: This is a 30-year-old patient, follows with Dr. Manpreet Mccartney. Patient's a complete by his mother. Patient has a history of alcohol use disorder. He was checked in [facility] [place] for detox 2 days ago. Was started on Ativan. Patient has been drinking 1/5 of alcohol every day. Last drink was 2 days ago. Patient started having tremors, visual hallucinations and therefore was sent down to the ER. Patient's only able to give a sporadic history. Most of the history is corroborated by the mother at the bedside. Patient somewhat shaky. He thinks that his racehorse trainer coaches sitting in the room. Admitted with acute DTs, acute alcohol withdrawal syndrome,. Put on a CIWA scale. Placed on Precedex drip. In the ICU. Improved. Moved to the medical floor. Today-doing much better. Up in the hallway. Oral intake fair. Patient being discharged to the [facility]. Discharged discussed with the patient. Patient been prescribed disulfiram. Also follow-up with GI for alcoholic hepatitis Consultation: Dr. Arizmendi from [facility] Past medical history to include: Hypertension, alcohol use disorder. GI bleed. Social history: Patient drinks a fifth of 5 ball whiskey every day.. Smokes cigarettes. 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 Family history: Reviewed, noncontributory to presentation Physical examination: VITAL SIGNS: 98.8, 70, 16, 134/83, 97% room air GENERAL: Sitting up in bed, a bit anxious EYES: Pupils equal. Conjunctiva normal. HEENT: External appearance of nose and ears normal, oral cavity grossly normal. NECK: JVD not raised; masses not palpable. HEART: First and second heart sounds are normal; no edema. LUNGS: Respiratory rate normal; clear to auscultation. ABDOMEN: Soft, nontender, liver spleen not palpable, no masses palpable. PSYCH: AO 3, a bit anxious INVESTIGATIONS, reviewed in the clinical context: June 10: WBC 5.2 hemoglobin 13.2 potassium 3.6 creatinine 0.73 AST 144 ALT 82 total bilirubin 1.9 WBC 4.4 hemoglobin 13.7 platelets 136 potassium 3.2 creatinine 0.81 Magnesium 1.4 AST 2:30 ALT 106 Assessment and plan: -Acute delirium tremens from alcoholism. -Acute alcohol withdrawal syndrome. Patient was on Precedex-discontinued ; CIWA scale. -Alcohol use disorder -Chronic nicotine dependence patient cigarette smoker. Give nicotine patch -Essential hypertension. Continue home medications that include Toprol-XL and Norvasc -GERD continue with PPI -Hypomagnesemia from alcoholism, to place -Alcoholic hepatitis -Hypokalemia. Replace potassium -Hyperbilirubinemia, improving Disposition: [facility]. Plan - Discharge Summary Discharge Rx Participant: Yes New Discharge Prescriptions: New Thiamine [Vitamin B-1] 100 mg PO BID-W/MEALS #60 tab Disulfiram 250 mg PO DIRECTED #30 tablet Continue amLODIPine [Norvasc] 5 mg PO DAILY Metoprolol Succinate (ER) [Toprol XL] 100 mg PO DAILY Pantoprazole Sodium [Protonix] 40 mg PO BID buPROPion HCL [Wellbutrin SR] 100 mg PO DAILY Discontinued Sucralfate [Carafate] 1 gm PO QID Discharge Medication List Metoprolol Succinate (ER) [Toprol XL] 100 mg PO DAILY 06/08/20 [History] Pantoprazole Sodium [Protonix] 40 mg PO BID 06/08/20 [History] amLODIPine [Norvasc] 5 mg PO DAILY 06/08/20 [History] buPROPion HCL [Wellbutrin SR] 100 mg PO DAILY 06/08/20 [History] Disulfiram 250 mg PO DIRECTED #30 tablet 06/11/20 [Rx] Thiamine [Vitamin B-1] 100 mg PO BID-W/MEALS #60 tab 06/11/20 [Rx] Follow up Appointment(s)/Referral(s): Manpreet Mccartney MD [Primary Care Provider] - 1-2 days Kamille Crain MD [STAFF PHYSICIAN] - 2 Weeks (alcoholic liver disease) Patient Instructions/Handouts: Thiamine (By mouth), Disulfiram (By mouth), Alcohol Withdrawal (DC), Hypomagnesemia (DC) Activity/Diet/Wound Care/Special Instructions: Patient is to discharge back to [facility] after inpatient admission. Discharge Disposition: OTHER INSTITUTION NOT DEFINED
== END 2020-06-11 11:26 | disposition other institution (70) | DRG 897 ==
LOC: EC 09:45 → 3SCARD 11:34 → 2SICU 12:38 → 5NMEDONC 06-10 20:36
PROVIDERS: ADMIT Hospitalist; ATTEND Hospitalist
DX: F10.231 Alcohol dependence with withdrawal delirium (principal); K70.10 Alcoholic hepatitis without ascites; E83.42 Hypomagnesemia; F17.210 Nicotine dependence, cigarettes, uncomplicated; I10 Essential (primary) hypertension; K21.9 Gastro-esophageal reflux disease without esophagitis; E87.6 Hypokalemia; Z79.899 Other long term (current) drug therapy; E80.6 Other disorders of bilirubin metabolism
CPT/HCPCS: 36415; 70450; 80053; 80306; 80320; 83690; 83735; 84132; 85025; 85610; 87324; 87635; 93005

== ENCOUNTER 2020-09-26 09:55 | Emergency (ER) | payer OTHER ==
[2020-09-26 10:33] LABS: HCT 46.2 % (39.0-53.0); HGB 16.1 gm/dL (13.0-17.5); MCH 30.8 pg (25.0-35.0); MCHC 34.9 g/dL (31.0-37.0); MCV 88.4 fL (80.0-100.0); Mean Platelet Volume 7.2; Platelet Count 224 k/uL (150-450); RBC 5.23 m/uL (4.30-5.90); RDW 13.3 % (11.5-15.5); WBC 6.6 k/uL (3.8-10.6)
[2020-09-26 10:51] LABS: ALT 112 U/L (4-49); AST 207 U/L (17-59); African American GFR (CKD) >90 (>60 ml/min/1.73 sqM); Alkaline Phosphatase 92 U/L (38-126); Anion Gap 13 mmol/L; Blood Urea Nitrogen 10 mg/dL (9-20); Calcium 9.7 mg/dL (8.4-10.2); Carbon Dioxide 32 mmol/L (22-30); Chloride 99 mmol/L (98-107); Glucose 90 mg/dL (74-99); Magnesium 1.4 mg/dL (1.6-2.3); Non-African American GFR(CKD) >90 (>60 ml/min/1.73 sqM); Potassium 4.4 mmol/L (3.5-5.1); Sodium 144 mmol/L (137-145); Total Bilirubin 0.6 mg/dL (0.2-1.3)
[2020-09-26 10:58] LABS: Alcohol 287 mg/dL
[2020-09-26] MEDS ORDERED: THIAMINE 100 MG/ML 2 ML VIAL IM STA (10:58)
[2020-09-26] MEDS ORDERED: LORazepam 2 MG/ML INJ IV PRN ×3 (10:58)
[2020-09-26] MEDS ORDERED: MAGNESIUM SULFATE-D5W PMX 1 GM in DEXTROSE/WATER 1 100ML.BAG IVPB ONE (11:06)
[2020-09-26 11:07] LABS: Appearance,Urine Cloudy (Clear); Bilirubin,Urine Negative (Negative); Blood,Urine Negative (Negative); Color,Urine Yellow; Glucose,Urine (UA) Negative (Negative); Ketones,Urine Trace (Negative); Leukocyte Esterase,Urine Negative (Negative); Mucus,Urine Moderate /hpf; Nitrite,Urine Negative (Negative); Protein,Urine 1+ (Negative); Specific Gravity,Urine 1.029 (1.001-1.035); Squamous Epithelial Cell,Urine <1 /hpf (0-4); Urobilinogen,Urine <2.0 mg/dL (<2.0); WBC,Urine 1 /hpf (0-5)
[2020-09-26 11:11] LABS: Band Neutrophils % 1 %; Eosinophils # (M) 0.13 k/uL (0-0.7); Lymphocytes # (M) 1.45 k/uL (1.0-4.8); Neutrophils % (M) 69 %; Nucleated Red Blood Cells 0 /100 WBC (0-0); Total Cells Counted 100
[2020-09-26 11:23] LABS: Amphetamine Screen,Urine Not Detected (NotDetected); Barbiturate Screen,Urine Not Detected (NotDetected); Benzodiazepines Screen,Urine Not Detected (NotDetected); Cocaine Screen,Urine Not Detected (NotDetected); Methadone Screen, Urine Not Detected (NotDetected); Opiate Screen,Urine Not Detected (NotDetected); Oxycodone Screen, Urine Not Detected (NotDetected); Phencyclidine Screen,Urine Not Detected (NotDetected); Tricyclic Antidepressant,Urine Not Detected (NotDetected); Urn Cannabinoid Scrn Not Detected (NotDetected)
--- NOTE | 2020-09-26 12:01 | ED ---
Alcohol HPI - General Chief Complaint: Alcohol Stated Complaint: ETOH Time Seen by Provider: 09/26/20 10:08 Source: patient, RN notes reviewed Mode of arrival: ambulatory Limitations: no limitations - History of Present Illness Initial Comments: Patient is a 30-year-old male that presents to the emergency Department complaining of alcoholism and wanting to get better. Mom brought patient to the emergency room to be admitted. Patient denies any suicidal or homicidal thoughts. He was a well-appearing well-hydrated 30-year-old male that was in no apparent distress or pain while sitting up in bed during exam and interview. Mom notes that he took one shot this morning per patient states they took it because it was out. He notes that he drinks approximately 1/5 of alcohol per day. Patient does note that he does have a history of withdrawals. Patient does have a safe ride home at this point. He denied any chest pain shortness breath headache nausea vomiting diarrhea constipation fever fatigue chills tremors. - Related Data Home Medications Medication Instructions Recorded Confirmed Metoprolol Succinate (ER) [Toprol 100 mg PO DAILY 06/08/20 09/26/20 XL] Pantoprazole Sodium [Protonix] 40 mg PO BID 06/08/20 09/26/20 amLODIPine [Norvasc] 5 mg PO DAILY 06/08/20 09/26/20 buPROPion HCL [Wellbutrin SR] 100 mg PO BID 06/08/20 09/26/20 Vivitrol 380mg/4ml 380 mg IM Q28D 09/26/20 09/26/20 Previous Rx's Medication Instructions Recorded LORazepam [Ativan] 0.5 mg PO Q3H PRN #60 tab 09/26/20 Allergies Allergy/AdvReac Type Severity Reaction Status Date / Time No Known Allergies Allergy Verified 09/26/20 11:06 Review of Systems ROS Statement: Those systems with pertinent positive or pertinent negative responses have been documented in the HPI. ROS Other: All systems not noted in ROS Statement are negative. Past Medical History Past Medical History: GI Bleed, Hypertension Additional Past Medical History / Comment(s): EGD December 2019 for ETOH withdraw and GI bleed. History of Any Multi-Drug Resistant Organisms: None Reported Additional Past Surgical History / Comment(s): EGD Past Anesthesia/Blood Transfusion Reactions: No Reported Reaction Past Psychological History: No Psychological Hx Reported Smoking Status: Current every day smoker Past Alcohol Use History: Heavy Past Drug Use History: None Reported General Exam Limitations: no limitations General appearance: alert, in no apparent distress Head exam: Present: atraumatic, normocephalic, normal inspection Eye exam: Present: normal appearance, PERRL, EOMI. Absent: scleral icterus, conjunctival injection, periorbital swelling Neck exam: Present: normal inspection Respiratory exam: Present: normal lung sounds bilaterally. Absent: respiratory distress, wheezes, rales, rhonchi, stridor Cardiovascular Exam: Present: regular rate, normal rhythm, normal heart sounds. Absent: systolic murmur, diastolic murmur, rubs, gallop, clicks GI/Abdominal exam: Present: soft, normal bowel sounds. Absent: distended, tenderness, guarding, rebound, rigid Extremities exam: Present: normal inspection, full ROM, normal capillary refill. Absent: tenderness, pedal edema, joint swelling, calf tenderness Neurological exam: Present: alert, oriented X3 Psychiatric exam: Present: normal affect, normal mood Skin exam: Present: warm, dry, intact, normal color. Absent: rash Course Vital Signs 09/26/20 09/26/20 10:04 11:31 Temperature 98.1 F Pulse Rate 76 87 Respiratory 20 16 Rate Blood Pressure 141/96 136/79 O2 Sat by Pulse 97 99 Oximetry Medical Decision Making - Medical Decision Making 30-year-old male complaining of alcoholism wanted to get treatment with his mother. Labs, urine drug screen, Ativan protocol ordered. Labs: Alcohol serum level 287, magnesium 1.4. 1 g of magnesium ordered. Patient will be given resources list for rehab. Case discussed with Dr. Frazier, patient can discharge home. - Lab Data Result diagrams: 09/26/20 10:24 09/26/20 10:24 Lab Results 09/26/20 09/26/20 09/26/20 Range/Units 10:24 10:24 10:35 WBC 6.6 (3.8-10.6) k/uL RBC 5.23 (4.30-5.90) m/uL Hgb 16.1 (13.0-17.5) gm/dL Hct 46.2 (39.0-53.0) % MCV 88.4 (80.0-100.0) fL MCH 30.8 (25.0-35.0) pg MCHC 34.9 (31.0-37.0) g/dL RDW 13.3 (11.5-15.5) % Plt Count 224 (150-450) k/uL MPV 7.2 Neutrophils % Not Reportable Neutrophils % (Manual) 69 % Band Neuts % (Manual) 1 % Lymphocytes % Not Reportable Lymphocytes % (Manual) 22 % Monocytes % Not Reportable Monocytes % (Manual) 6 % Eosinophils % Not Reportable Eosinophils % (Manual) 2 % Basophils % Not Reportable Neutrophils # Not Reportable Neutrophils # (Manual) 4.60 (1.3-7.7) k/uL Lymphocytes # Not Reportable Lymphocytes # (Manual) 1.45 (1.0-4.8) k/uL Monocytes # Not Reportable Monocytes # (Manual) 0.40 (0-1.0) k/uL Eosinophils # Not Reportable Eosinophils # (Manual) 0.13 (0-0.7) k/uL Basophils # Not Reportable Nucleated RBCs 0 (0-0) /100 WBC Manual Slide Review Performed RBC Morphology Normal Sodium 144 (137-145) mmol/L Potassium 4.4 (3.5-5.1) mmol/L Chloride 99 (98-107) mmol/L Carbon Dioxide 32 H (22-30) mmol/L Anion Gap 13 mmol/L BUN 10 (9-20) mg/dL Creatinine 0.99 (0.66-1.25) mg/dL Est GFR (CKD-EPI)AfAm >90 (>60 ml/min/1.73 sqM) Est GFR (CKD-EPI)NonAf >90 (>60 ml/min/1.73 sqM) Glucose 90 (74-99) mg/dL Calcium 9.7 (8.4-10.2) mg/dL Magnesium 1.4 L (1.6-2.3) mg/dL Total Bilirubin 0.6 (0.2-1.3) mg/dL AST 207 H (17-59) U/L ALT 112 H (4-49) U/L Alkaline Phosphatase 92 (38-126) U/L Total Protein 8.0 (6.3-8.2) g/dL Albumin 5.0 (3.5-5.0) g/dL Urine Color Yellow Urine Appearance Cloudy (Clear) Urine pH 6.0 (5.0-8.0) Ur Specific [place]calfe 1.029 (1.001-1.035) Urine Protein 1+ H (Negative) Urine Glucose (UA) Negative (Negative) Urine Ketones Trace H (Negative) Urine Blood Negative (Negative) Urine Nitrite Negative (Negative) Urine Bilirubin Negative (Negative) Urine Urobilinogen <2.0 (<2.0) mg/dL Ur Leukocyte Esterase Negative (Negative) Urine WBC 1 (0-5) /hpf Ur Squamous Epith Cells <1 (0-4) /hpf Urine Mucus Moderate H (None) /hpf Urine Opiates Screen Not Detected (NotDetected) Ur Oxycodone Screen Not Detected (NotDetected) Urine Methadone Screen Not Detected (NotDetected) Ur Propoxyphene Screen Not Detected (NotDetected) Ur Barbiturates Screen Not Detected (NotDetected) U Tricyclic Antidepress Not Detected (NotDetected) Ur Phencyclidine Scrn Not Detected (NotDetected) Ur Amphetamines Screen Not Detected (NotDetected) U Methamphetamines Scrn Not Detected (NotDetected) U Benzodiazepines Scrn Not Detected (NotDetected) Urine Cocaine Screen Not Detected (NotDetected) U Marijuana (THC) Screen Not Detected (NotDetected) Serum Alcohol 287 H* mg/dL Disposition Clinical Impression: Alcoholic intoxication, Alcohol withdrawal syndrome, Hypomagnesemia Disposition: HOME SELF-CARE Condition: Stable Instructions (If sedation given, give patient instructions): Alcohol Intoxication (ED), Alcohol Withdrawal (ED) Additional Instructions: Please return to the Emergency Department if symptoms worsen or any other concerns. Follow-up with primary care as soon as possible. Take Ativan as prescribed. Look for rehab facilities as needed. Prescriptions: LORazepam [Ativan] 0.5 mg PO Q3H PRN #60 tab PRN Reason: Alcohol Withdrawal Is patient prescribed a controlled substance at d/c from ED?: No Referrals: Manpreet Mccartney MD [Primary Care Provider] - 1-2 days Time of Disposition: 12:25
[2020-09-26 12:40] VITALS: BP 136/85; PULSE 106; RESP 18; TEMP 98
[2020-09-26] MEDS ORDERED: THIAMINE 100 MG TAB PO SCH (17:30)
== END 2020-09-26 12:40 | disposition home or self-care (01) ==
LOC: EC 09:55
DX: F10.229 Alcohol dependence with intoxication, unspecified (principal); F10.239 Alcohol dependence with withdrawal, unspecified; F17.200 Nicotine dependence, unspecified, uncomplicated; E83.42 Hypomagnesemia; I10 Essential (primary) hypertension; Y90.8 Blood alcohol level of 240 mg/100 ml or more
CPT/HCPCS: 36415; 80053; 83735; 85025; 81001; 80306; 99284; 96374; 96375; G0480; J2060; J3475; 80320